=== PATIENT | male | born 1955 | race Caucasian/White ===

== ENCOUNTER 2018-08-18 11:28 | Emergency (ER) | payer BC ==
--- NOTE | 2018-08-18 11:53 | PDOC ---
History of Present Illness - General Chief Complaint: Palpitations Stated Complaint: Palpitations Time Seen by Provider: 08/18/18 11:52 - History of Present Illness Initial Comments: 08/18/18 11:52 Mr. Mobley is a 62 yo male w/ pmh of HTN, HLD, mitral valve repair (2018), cardiac stent approx. 1 year ago, and recent diagnosis of afib 10 days ago ( currently on holter monitor) who presents for evaluation on advice of banquet captain (Dr. Gipson) for runs of tachycardia noted on monitor to 150's. Patient reports he intermittently feels midline chest pressure however denies any pain or other symptoms. He currently takes a baby aspirin and Xarelto daily. No other complaints at this time. The patient denies shortness of breath, headache and dizziness. Denies fever, chills, nausea, vomit, diarrhea and constipation. Denies dysuria, frequency, urgency and hematuria. Past History - Past Medical History Allergies/Adverse Reactions: Allergies Allergy/AdvReac Type Severity Reaction Status Date / Time No Known Allergies Allergy Verified 08/18/18 11:48 Home Medications: Ambulatory Orders Metoprolol Succinate [Toprol Xl -] 25 mg PO DAILY #7 tab.sr.24h 08/18/18 COPD: Yes (thrach myestenia gravis) CHF: No Diabetes: Yes Disorders: Yes (Gtube, trach) HTN: Yes Hypercholesterolemia: Yes Seizures: Yes - Suicide/Smoking/Psychosocial Hx Smoking History: Unknown if ever smoked Have you smoked in the past 12 months: No Information on smoking cessation initiated: No Hx Alcohol Use: No Drug/Substance Use Hx: No Review of Systems - Review of Systems Comments:: 08/18/18 11:52 GENERAL/CONSTITUTIONAL: No fever or chills. No weakness. HEAD, EYES, EARS, NOSE AND THROAT: No change in vision. No ear pain or discharge. No sore throat. CARDIOVASCULAR: +Chest pressure as described. No shortness of breath RESPIRATORY: No cough, wheezing, or hemoptysis. GASTROINTESTINAL: No nausea, vomiting, diarrhea or constipation. GENITOURINARY: No dysuria, frequency, or change in urination. MUSCULOSKELETAL: No joint or muscle swelling or pain. No neck or back pain. SKIN: No rash NEUROLOGIC: No headache, vertigo, loss of consciousness, or change in strength/ sensation. ENDOCRINE: No increased thirst. No abnormal weight change HEMATOLOGIC/LYMPHATIC: No anemia, easy bleeding, or history of blood clots. ALLERGIC/IMMUNOLOGIC: No hives or skin allergy. *Physical Exam - Vital Signs Last Vital Signs Temp Pulse Resp BP Pulse Ox 99.4 F 98 H 14 140/80 100 08/18/18 11:30 08/18/18 11:30 08/18/18 11:30 08/18/18 11:30 08/18/18 11:30 - Physical Exam Comments: 08/18/18 11:52 GENERAL: Awake, alert, and fully oriented, in no acute distress HEAD: No signs of trauma, normocephalic, atraumatic EYES: PERRLA, EOMI, sclera anicteric, conjunctiva clear ENT: Auricles normal inspection, hearing grossly normal, nares patent, oropharynx clear without exudates. Moist mucosa NECK: Normal ROM, supple, no lymphadenopathy, JVD, or masses LUNGS: No distress, speaks full sentences, clear to auscultation bilaterally HEART: Irregular rhythm, regular rate, normal S1 and S2, no murmurs, rubs or gallops, peripheral pulses normal and equal bilaterally. ABDOMEN: Soft, nontender, normoactive bowel sounds. No guarding, no rebound. No masses EXTREMITIES: Normal inspection, Normal range of motion, no edema. No clubbing or cyanosis. NEUROLOGICAL: Cranial nerves II through XII grossly intact. Normal speech, normal gait, no focal sensorimotor deficits SKIN: Warm, Dry, normal turgor, no rashes or lesions noted. 08/18/18 12:08 Moderate Sedation - Procedure Monitoring Vital Signs: Procedure Monitoring Vital Signs Temperature 99.4 F 08/18/18 11:30 Pulse Rate 98 H 08/18/18 11:30 Respiratory Rate 14 08/18/18 11:30 Blood Pressure 140/80 08/18/18 11:30 O2 Sat by Pulse Oximetry (%) 100 08/18/18 11:30 ED Treatment Course - LABORATORY CBC & Chemistry Diagram: 08/18/18 12:21 08/18/18 12:21 Medical Decision Making - Medical Decision Making 08/18/18 14:26 Mr. Mobley is a 62 yo male w/ pmh as described who presents for evaluation of noted afib + tachycardia on monitor. Patient evaluated with cardiac labs as below with no concerning findings. Discussed patient with Shop Clerk (Dr. Gipson, ) who recommended starting toprol xl 25mg po daily QD and office follow-up as soon as possible. Medication started in ED and script sent to patient's pharmacy. Patient verbalized understanding and agreement with this plan and will comply. 08/18/18 15:08 Repeat vitals following toprol 112/79; pulse 85. Discharging to home. Laboratory Results - last 24 hr 08/18/18 08/18/18 12:21 12:21 WBC 8.1 RBC 5.19 Hgb 13.7 Hct 40.4 MCV 77.9 L MCH 26.5 MCHC 34.0 RDW 17.0 H Plt Count 257 MPV 9.7 D Absolute Neuts (auto) 5.8 Neutrophils % 71.6 Lymphocytes % 19.9 Monocytes % 7.1 Eosinophils % 0.5 Basophils % 0.9 Nucleated RBC % 0 Sodium 140 Potassium 4.5 Chloride 109 H Carbon Dioxide 21 Anion Gap 10 BUN 20 H Creatinine 0.9 Creat Clearance w eGFR > 60 Random Glucose 135 H Calcium 9.2 Total Bilirubin 0.6 AST 30 ALT 35 Alkaline Phosphatase 82 Creatine Kinase 190 Creatine Kinase Index 1.3 CK-MB (CK-2) 2.6 Troponin I < 0.02 Total Protein 7.3 Albumin 3.7 *DC/Admit/Observation/Transfer Diagnosis at time of Disposition: Palpitations - Discharge Dispostion Disposition: HOME - Prescriptions Prescriptions: Metoprolol Succinate [Toprol Xl -] 25 mg PO DAILY #7 tab.sr.24h - Referrals - Patient Instructions Printed Discharge Instructions: DI for Tachycardia Additional Instructions: You were evaluated today in the ED for your tachycardia. No concerning findings were found on cardiac exam and labs. We discussed your case with your banquet captain who recommended adding a new medication (Toprol XL 25mg). We started this medication in the ED and sent a prescription to your pharmacy. Take all medications as proscribed and follow-up with banquet captain as soon as possible. Return to ER if any fevers, chills, palpitations, chest pain, or other concerning symptoms. - Post Discharge Activity
[2018-08-18 12:01] VITALS: TEMP 99.4; BMI 25.4
--- NOTE | 2018-08-18 12:52 | PDOC ---
Attending Attestation - Resident Resident Name: Jericho Castro - ED Attending Attestation I have performed the following: I have examined & evaluated the patient, The case was reviewed & discussed with the resident, I agree w/resident's findings & plan, Exceptions are as noted - HPI HPI: 08/18/18 12:46 62 M with h/o HTN, HLD, mitral valve repair (2018), cardiac stent approx. 1 year ago, presenting to ED after being found to be in rapid afib. Pt states that he was recently diagnosed with afib 10 days ago during a routine cardiology visit. He denies any symptoms at that time. Pt was subsequently placed on xarelto and a baby aspirin but no rate control. Pt has been wearing a manager lab since then and was called by his civil engineering specialist today telling him that his HR went above 150. Pt was instructed to come to ER. Pt states that he has had no symptoms whatsoever. No CP/SOB/palpitations/lightheadedness. States he feels well. - Physicial Exam PE: 08/18/18 12:50 "GENERAL: Awake, alert, and fully oriented, in no acute distress. HEAD: No signs of trauma EYES: PERRLA, EOMI, sclera anicteric, conjunctiva clear ENT: Auricles normal inspection, hearing grossly normal, nares patent, oropharynx clear without exudates. Moist mucosa NECK: Nontender, no stepoffs, Normal ROM, supple, no lymphadenopathy, JVD, or masses LUNGS: Breath sounds equal, clear to auscultation bilaterally. No wheezes, and no crackles HEART: irregular, normal S1 and S2, no murmurs, rubs or gallops ABDOMEN: Soft, nontender, normoactive bowel sounds. No guarding, no rebound. No masses EXTREMITIES: Normal range of motion, no edema. No clubbing or cyanosis. No cords, erythema, or tenderness NEUROLOGICAL: Cranial nerves II through XII intact. 5/5 strength and sensation in all extremities, Normal speech, normal gait, normal cerebellar function SKIN: Warm, Dry, normal turgor, no rashes or lesions noted. - Medical Decision Making 08/18/18 12:51 62 M with newly diagnosed afib, found to be in RVR while wearing outpt monitor. Pt with no symptoms. HD stable. EKG today shows rate controlled afib. - Labs - Discuss rate control with civil engineering specialist Dr. Gipson ([phone]) 08/18/18 14:22 Labs wnl Pt reassessed - continues to have rate controlled afib, HD stable and asymptomatic Dr. Walls spoke with Dr. Gipson, who recommends starting pt on Metoprolol 25mg daily. Will give one dose here. Pt is well appearing, with normal vitals. Clinically stable for DC at this time. I discussed the physical exam findings, ancillary test results and final diagnoses with the patient. I answered all of the patient's questions. The patient was satisfied with the care received and felt comfortable with the discharge plan and treatment plan. The patient agrees to follow up with the primary care physician within 24-72 hours.
[2018-08-18 13:12] LABS: BASO % 0.9 % (0-2.0); EOS % 0.5 % (0-4.5); HEMATOCRIT 40.4 % (35.4-49); HEMOGLOBIN 13.7 GM/dL (11.7-16.9); LYMPH % 19.9 % (8-40); MCH 26.5 pg (25.7-33.7); MEAN CELL VOLUME 77.9 fl (80-96); MEAN PLT VOLUME 9.7 fl (7.5-11.1); MONO % 7.1 % (3.8-10.2); NEUT % 71.6 % (42.8-82.8); PLATELET COUNT 257 K/MM3 (134-434); RBC 5.19 M/mm3 (4.00-5.60); WHITE BLOOD COUNT 8.1 K/mm3 (4.0-10.0)
[2018-08-18 13:45] LABS: ALBUMIN 3.7 g/dl (3.4-5.0); ALK PHOS 82 U/L (45-117); ANION GAP 10 MMOL/L (8-16); BILIRUBIN,TOTAL 0.6 mg/dL (0.2-1); BLOOD UREA NITROGEN 20 mg/dL (7-18); CALCIUM 9.2 mg/dL (8.5-10.1); CHLORIDE 109 mmol/L (98-107); CO2 21 mmol/L (21-32); CREATININE 0.9 mg/dL (0.55-1.3); GLUCOSE,RANDOM 135 mg/dL (74-106); POTASSIUM 4.5 mmol/L (3.5-5.1); SGOT/AST 30 U/L (15-37); SGPT/ALT 35 U/L (13-61); SODIUM 140 mmol/L (136-145); TOT PROT 7.3 g/dl (6.4-8.2)
[2018-08-18] MEDS ORDERED: metoPROLOL SUCCINATE 25 MG TAB.SR.24H (FP) PO ONE (14:22)
[2018-08-18 15:11] VITALS: BP 112/79; PULSE 78
--- NOTE | 2018-08-18 15:12 | EKG ---
Test Reason : Blood Pressure : / mmHG Vent. Rate : 107 BPM Atrial Rate : 113 BPM P-R Int : 000 ms QRS Dur : 082 ms QT Int : 348 ms P-R-T Axes : 000 045 029 degrees QTc Int : 464 ms ATRIAL FIBRILLATION WITH RAPID VENTRICULAR RESPONSE NONSPECIFIC ST AND T WAVE ABNORMALITY ABNORMAL ECG NO PREVIOUS ECGS AVAILABLE Confirmed by RAKESH IZQUIERDO MD ([id number]) on 08/18/2018 3:12:05 PM Referred By: Confirmed By:RAKESH IZQUIERDO MD
== END 2018-08-18 15:19 | disposition home or self-care (01) ==
LOC: JER 11:28
DX: R00.2 Palpitations (principal); I10 Essential (primary) hypertension; E78.5 Hyperlipidemia, unspecified; Z95.5 Presence of coronary angioplasty implant and graft; I48.91 Unspecified atrial fibrillation; R56.9 Unspecified convulsions
CPT/HCPCS: 36415; 71046-TC-FY; 80053; 82550; 82553; 84484; 85025; 93005; 93010; 99285-25